=== PATIENT | female | born 1955 | race Caucasian/White ===

== ENCOUNTER 2018-04-12 18:10 | Emergency (ER) | payer MEDICARE, BC ==
[~2018-04-12 18:10] MED LIST: Sodium Chloride 0.9% 1,000 ML BAG ONE
[2018-04-12 20:19] LABS: Bilirubin Negative (Negative); Blood, Urine Moderate (Negative); Glucose, Urine (Dipstick) Negative (Negative); Leukocyte Moderate (Negative); Nitrite Positive (Negative); Protein, Urine (Dipstick) Negative (Neg-Trace); Urobilinogen 0.2 mg/dL (0.2-1.0)
[2018-04-12 20:21] LABS: Clarity Hazy (Clear); Specific Gravity, Urine 1.005 (1.002-1.036)
--- NOTE | 2018-04-12 20:21 | CT ---
CT HEAD NONCONTRAST: INDICATIONS: Altered mental status. FINDINGS: There is motion artifact, which limits evaluation. No intracranial hemorrhage, mass effect, midline shift, or ventriculomegaly. There is evidence of mild chronic microvascular ischemic disease. IMPRESSION: Limited exam due to patient motion, without intracranial hemorrhage or mass effect identified. POS: [facility]
[2018-04-12 20:22] LABS: Bacteria/HPF 2+ HPF (None Seen); Squamous Epithelial 0-3 HPF (0-3)
[2018-04-12 20:46] LABS: Band 2 % (5-11); Eosinophils 3 % (0-10); Hypochromia SLIGHT = 6-15 cells (100X) (0-5/hpf); Lymphocytes 33 % (21-51); MDiff Complete? YES; Mean Corpuscular HGB CONC 35.1 g/dL (32.0-36.0); Mean Corpuscular Volume 91.1 fl (81.0-99.0); Mean Platelet Volume 5.4 fL (7.4-10.4); Monocytes 5 % (0-10); Neutrophil 57 % (42-75); PLT Morphology Comment Appears Adequate; Platelet Count 265 thou/uL (130-400); RBC Distribution Width 13.3 % (11.5-14.5); Red Blood Cell (RBC) Count 3.14 mill/uL (4.20-5.40); White Blood Cell (WBC) Count 12.1 thou/uL (4.8-10.8)
[2018-04-12 20:50] LABS: ALT (SGPT) 8 U/L (8-55); AST (SGOT) 20 U/L (5-34); Albumin 3.7 g/dL (3.4-4.8); Alkaline Phosphatase 66 U/L (40-150); Anion Gap 14 mmol/L (10-20); BUN (Urea Nitrogen) 7 mg/dL (9.8-20.1); Bilirubin, Total 0.3 mg/dL (0.2-1.2); Calc. Creatinine Clearance 0 mL/min (70-130); Calcium 9.2 mg/dL (7.8-10.44); Carbon Dioxide 26 mmol/L (23-31); Chloride 91 mmol/L (98-107); Estimated GFR-MDRD 90; Glucose 80 mg/dL (80-115); Potassium 4.1 mmol/L (3.5-5.1); Protein, Total 6.7 g/dL (6.0-8.3); Sodium 127 mmol/L (136-145)
[2018-04-12] MEDS ORDERED: diphenhydrAMINE 50 MG/ML VIAL ONE (21:05)
== END 2018-04-12 22:10 | disposition short-term general hospital (02) ==
LOC: MADERS 18:10
DX: R41.82 Altered mental status, unspecified (principal); D51.0 Vitamin B12 deficiency anemia due to intrinsic factor deficiency; E87.1 Hypo-osmolality and hyponatremia; N39.0 Urinary tract infection, site not specified; G24.9 Dystonia, unspecified; M32.9 Systemic lupus erythematosus, unspecified; R29.6 Repeated falls; Z79.899 Other long term (current) drug therapy
CPT/HCPCS: 36415; 70450; 80053; 81001; 84443; 85025; 87077; 87086; 87186; 96361; 96374; J1200